=== PATIENT | female | born 1930 | race Caucasian/White ===

== ENCOUNTER 2019-05-19 15:33 | Observation (INO) | payer MEDICARE ==
[~2019-05-19] VITALS: Ht 154.9 cm; Wt 67.3 kg
[2019-05-19 16:17] LABS: BASO % 0.2 % (0.0-1.0); EOS # 0.3 10^3/uL (0.0-0.5); EOS % 3.6 % (0.0-3.0); HEMOGLOBIN 10.5 g/dl (12.0-15.5); LYMPH # 1.7 10^3/uL (1.5-5.0); LYMPH % 19.2 % (24.0-44.0); MEAN CORPUSCULAR HEMOGLOBIN 31.8 pg (27.0-33.0); MEAN CORPUSCULAR HGB CONC 33.9 g/dl (32.0-36.5); MEAN CORPUSCULAR VOLUME 93.9 fl (80.0-96.0); MONO # 0.7 10^3/uL (0.0-0.8); NEUTROPHILS # 5.9 10^3/uL (1.5-8.5); NEUTROPHILS % 68.5 % (36.0-66.0); PLATELET COUNT, AUTOMATED 218 10^3/uL (150-450); WHITE BLOOD COUNT 8.7 10^3/uL (4.0-10.0)
[2019-05-19] MEDS ORDERED: NS 1,000 ML IV SCH ×3 (16:37→21:45)
[2019-05-19 16:38] LABS: ALBUMIN 3.5 GM/DL (3.2-5.2); ALT/SGPT 17 U/L (12-78); BILIRUBIN,DIRECT < 0.1 MG/DL (0.0-0.2); BILIRUBIN,TOTAL 0.3 MG/DL (0.2-1.0); BLOOD UREA NITROGEN 41 MG/DL (7-18); CARBON DIOXIDE LEVEL 22 MEQ/L (21-32); CHLORIDE LEVEL 108 MEQ/L (98-107); GLOMERULAR FILTRATION RATE 20.3 (>32); GLUCOSE, FASTING 282 MG/DL (70-100); LIPASE 17 U/L (73-393); POTASSIUM SERUM 4.9 MEQ/L (3.5-5.1); SODIUM LEVEL 138 MEQ/L (136-145); TOTAL PROTEIN 6.7 GM/DL (6.4-8.2)
[2019-05-19] MEDS ORDERED: MORPHINE 4 MG/ML 1ML VIAL/SYRINGE (J2270) IV ONE (16:45)
[2019-05-19] MEDS ORDERED: GASTROGRAFIN SOLUTION 30ML (Q9963) As Ordered ONE (16:53)
[2019-05-19] MEDS: GASTROGRAFIN SOLUTION 30ML PO SCH ×2 (17:07→17:33)
[2019-05-19] MEDS ORDERED: ONDANSETRON 4MG/2ML VIAL (J2405) As Ordered ONE (17:53)
[2019-05-19] MEDS ORDERED: ONDANSETRON 4MG/2ML VIAL (J2405) IV ONE (18:00)
--- NOTE | 2019-05-19 19:07 | REPVR ---
EXAM: CT Abdomen and Pelvis Without Contrast EXAM DATE/TIME: 05/19/2019 6:42 PM CLINICAL HISTORY: 88 years old, female; Abdominal pain; Additional info: Llq pain TECHNIQUE: Imaging protocol: Computed tomography of the abdomen and pelvis without contrast. Radiation optimization: All CT scans at this facility use at least one of these dose optimization techniques: automated exposure control; mA and/or kV adjustment per patient size (includes targeted exams where dose is matched to clinical indication); or iterative reconstruction. COMPARISON: No relevant prior studies available. FINDINGS: Lungs: Dependent changes within the lung bases is likely secondary to atelectasis. Calcified granuloma within the right middle lobe. Liver: Unremarkable. No mass. Gallbladder and bile ducts: There is a small calcified stone within the gallbladder. No gallbladder wall thickening or pericholecystic inflammation is identified. Pancreas: Coarse calcifications throughout the atrophied pancreas are consistent with chronic pancreatitis. Spleen: Unremarkable. No splenomegaly. Adrenals: Unremarkable. No mass. Kidneys and ureters: There is a 12 mm cyst within the left kidney. There is a stone measuring 6 mm and 2 mm at the left ureteropelvic junction, resulting in moderate left hydronephrosis. The right kidney and right ureter have normal appearances. Stomach and bowel: Mild colonic diverticulosis without diverticulitis. The small bowel is unremarkable. There is a tiny gastric hiatus hernia. Appendix: No evidence of appendicitis. Intraperitoneal space: No free air. No significant fluid collection. Vasculature: There is moderate severe atherosclerosis of the abdominal aorta. No aneurysm. Lymph nodes: No enlarged lymph nodes. Bladder: Unremarkable as visualized. Reproductive: Unremarkable as visualized. Bones/joints: Degenerative spondylosis of the lumbar spine. No fracture. Degenerative changes within both hips. Soft tissues: Unremarkable. IMPRESSION: 1. 6 mm and 2 mm diameter stones at the left ureteropelvic junction, resulting in moderate left hydronephrosis. 2. Left renal cyst. 3. Chronic pancreatitis. 4. Cholelithiasis. COMMENT: Consistent with the [employer]'s Incidental Findings Committee Report (J Am Lisy Radiol 2010): Unless the patient's specific circumstances suggest otherwise, any liver lesion 0.5 cm or less, any cystic kidney lesion less than 1.0 cm, and/or any adrenal lesion 1.0 cm or less not otherwise characterized in this report as possessing suspicious or indeterminate imaging features is/are highly likely to be benign and do not require follow-up imaging or biopsy. Electronically signed by: Marlon Pierce On 05/19/2019 19:07:10 PM
[2019-05-19] MEDS ORDERED: propofoL 200 MG/20 ML VIAL As Ordered ONE (19:49)
[2019-05-19] MEDS ORDERED: LIDOCAINE 2% INJ 100 MG/5 ML SDV (FOR ANES.) As Ordered ONE (19:49)
--- NOTE | 2019-05-19 19:54 | HPEPDOC ---
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 Per discussion with Dr. Schaefer (ED Attending) the CT scan showed 2 stones and moderate hydronephrosis. The patient underwent cystoscopy and left ureteral stent placement tonight; the stones were not removed. She was examined in the recovery area after procedure and reported that her pain had completely resolved. She denied having fevers, denied having chills, denied having nausea, denied having vomiting, denied having dysuria prior to the procedure. REVIEW OF SYSTEMS: 12 point review of systems negative except as listed in HPI PAST MEDICAL/ SURGICAL HISTORY: Chronic CAD status post stent. Chronic Hypertension. CKD 4, Dyslipidemia. Diabetes / Chronic pancreatitis Hypothyroidism Pacemaker placement Chronic anemia Impaired hearing Diverticulosis/history of diverticulitis. Status post Carpal tunnel surgery. Status post hysterectomy Status post left rotator cuff repair SOCIAL HISTORY: Former smoker The patient reports being independent in her ADLs and IADLs FAMILY HISTORY: The patient reports that she does not know her family history because she was adopted ALLERGIES: Please see below. HOME MEDICATIONS: Please see below. PHYSICAL EXAMINATION: VITAL SIGNS: Please see below. GENERAL APPEARANCE: Well-nourished, well-developed, does not appear toxic or septic, not in apparent distress HEENT: Normocephalic, atraumatic, mucous members moist and pink CARDIOVASCULAR: Regular rate and rhythm, no murmurs, rubs or gallops, pacemaker at left upper chest LUNGS: clear to auscultation bilaterally on room air ABDOMEN: Soft and nontender on palpation. Bowel sounds hypoactive MUSCULOSKELETAL: No left-sided CVA tenderness INTEGUMENT: The patient's skin is not flushed NEUROLOGICAL: Cranial nerves II-12 are grossly intact, except for difficulties with hearing, speech is not dysarthric PSYCHIATRIC: Alert and oriented to person, place and time, able to understand and follow commands LABORATORY DATA: See below. IMAGING: CT of abdomen showed 6 mm 2 mm diameter stenosis at the left uteropelvic junction causing moderate left hydronephrosis. A left-sided renal cyst, chronic pancreatitis and cholelithiasis. MICROBIOLOGY: Please see below. ASSESSMENT: Ms. Daniels is an 88-year-old female with a past medical history of chronic CAD, chronic hypertension, CKD 4, dyslipidemia, diabetes, chronic pancreatitis, hypothyroidism, pacemaker placement, and chronic anemia who will be admitted for management of ureterolithiasis with hydronephrosis. PLAN: 1. Ureterolithiasis with hydronephrosis. The diagnosis was made based on CT findings Plan: Admit to F after procedure/continue with IV fluids/follow-up with urology / acetaminophen for pain, 1-5 in severity + tramadol for pain 6-10 in severity 2. ROSAMARAI on CKD 4 versus CKD 4 ROSAMARIA, may be due to obstruction from kidney stones. CKD, possibly due to diabetic nephropathy versus hypertensive nephropathy or hypertensive nephrosclerosis Her current Cr 2.4 . We do not have additional records to review her previous creatinine, GFR and BUN. Plan: Is/ Os & daily weights / Renal diet tomorrow / IVF/ f/u UA ulytes for FENa or FEUrea/ f/u renal US, Phosphorous, 25 Vitamin D, Hepatitis Panel, PTH, C3, C4, Iron Panel w Ferritin, UPro:Cr ratio, protein immunoelectrophoresis /if her renal function doesn't improve, the daytime team may consider Service Greeter consult/ avoid NSAIDs / hold Lisinopril 3. Chronic normocytic normochromic anemia. Likely due to anemia of chronic disease Plan: Follow-up reticulocyte count and iron studies 4. Chronic Hypertension. Plan: Continue home meds except for lisinopril 5.Dyslipidemia /chronic CAD. Plan: Continue home meds 6. Diabetes Not sure if this is related to her history of chronic pancreatitis Plan: diabetic diet / f/u accuchecks & A1C / hypoglycemia protocol / continue with glargine 8 units at night along with sliding scale insulin / hold glipizide 7. Hypothyroidism Plan: Continue home meds DVT prophylaxis with SCDs. Disposition pending clinical course Vital Signs Vital Signs Date Time Temp Pulse Resp B/P (MAP) Pulse Ox O2 Delivery O2 Flow Rate FiO2 05/19/19 18:45 74 16 05/19/19 18:30 153/70 (97) 94 05/19/19 15:42 98.3 Laboratory Data Labs 24H Laboratory Tests 2 05/19/19 16:02: Immature Granulocyte % (Auto) 0.5, White Blood Count 8.7, Red Blood Count 3.30L, Hemoglobin 10.5L, Hematocrit 31.0L, Mean Corpuscular Volume 93.9, Mean Corpuscular Hemoglobin 31.8, Mean Corpuscular Hemoglobin Concent 33.9, Red Cell Distribution Width 11.9, Platelet Count 218, Neutrophils (%) (Auto) 68.5H, Lymphocytes (%) (Auto) 19.2L, Monocytes (%) (Auto) 8.0H, Eosinophils (%) (Auto) 3.6H, Basophils (%) (Auto) 0.2, Neutrophils # (Auto) 5.9, Lymphocytes # (Auto) 1.7, Monocytes # (Auto) 0.7, Eosinophils # (Auto) 0.3, Basophils # (Auto) 0.0, Nucleated Red Blood Cells % (auto) 0.0, Anion Gap 8, Glomerular Filtration Rate 20.3L, Calcium Level 9.0, Aspartate Amino Transf (AST/SGOT) 11, Alanine Aminotransferase (ALT/SGPT) 17, Alkaline Phosphatase 109, Total Bilirubin 0.3, Direct Bilirubin < 0.1, Total Protein 6.7, Albumin 3.5, Albumin/Globulin Ratio 1.09, Lipase 17L CBC/BMP Laboratory Tests 05/19/19 16:02 Red Blood Count 3.30 L, Mean Corpuscular Volume 93.9, Mean Corpuscular Hemoglobin 31.8, Mean Corpuscular Hemoglobin Concent 33.9, Red Cell Distribution Width 11.9, Neutrophils (%) (Auto) 68.5 H, Lymphocytes (%) (Auto) 19.2 L, Monocytes (%) (Auto) 8.0 H, Eosinophils (%) (Auto) 3.6 H, Basophils (%) (Auto) 0.2, Neutrophils # (Auto) 5.9, Lymphocytes # (Auto) 1.7, Monocytes # (Auto) 0.7, Eosinophils # (Auto) 0.3, Basophils # (Auto) 0.0 Home Medications Scheduled Ergocalciferol (Vitamin D2) (Vitamin D2) 50,000 Unit Capsule, 50,000 UNIT PO 1XW K TAKES ON FRIDAY Furosemide (Furosemide) 20 Mg Tablet, 20 MG PO DAILY Glipizide (Glipizide ER) 2.5 Mg Tab.er.24, 2.5 MG PO DAILY Hydralazine HCl (Hydralazine HCl) 10 Mg Tablet, 10 MG PO BID Insulin Glargine,Hum.rec.anlog (Lantus Solostar) 100 Unit/1 Ml Insuln.pen, 8 UNITS SC QPM TAKES AT NOON Levothyroxine Sodium (Synthroid) 100 Mcg Tablet, 100 MCG PO DAILY Lisinopril (Lisinopril) 40 Mg Tablet, 40 MG PO DAILY Magnesium Oxide (Magnesium Oxide) 400 Mg Tablet, 400 MG PO DAILY Metoprolol Succinate (Metoprolol Succinate) 50 Mg Tab.er.24h, 50 MG PO BID Pravastatin Sodium (Pravastatin Sodium) 10 Mg Tablet, 10 MG PO DAILY Scheduled PRN Clotrimazole (Clotrimazole) 1% 30GM Cream..g., 1 APLCT TOP TID PRN for RASH APPLY TO AFFECTED AREA OF GENITAL REGION Allergies Coded Allergies: amlodipine (Verified Allergy, Severe, angioedema, 05/19/19) A-FIB/CHADSVASC A-FIB History Current/History of A-Fib/PAF?: No Current PO Anticoag Therapy: No CINTHIA SETHI MD May 19, 2019 19:54
[2019-05-19] MEDS ORDERED: CONRAY-60 60% 50ML VIAL (Q9961) As Ordered ONE (20:04)
[2019-05-19] MEDS ORDERED: FURO20TA2 PO (20:20)
[2019-05-19] MEDS ORDERED: LISI40TA PO (20:20)
[2019-05-19] MEDS ORDERED: LANTINJ4 SC (20:20)
[2019-05-19] MEDS ORDERED: HYDR10TAB PO (20:20)
[2019-05-19] MEDS ORDERED: SYNT100T PO (20:20)
[2019-05-19] MEDS ORDERED: VITA50005 PO (20:20)
[2019-05-19] MEDS ORDERED: GLIP2.5T6 PO (20:20)
[2019-05-19] MEDS ORDERED: CLOT1CRE27 TOP (20:20)
[2019-05-19] MEDS ORDERED: PRAV10TA3 PO (20:20)
[2019-05-19] MEDS ORDERED: MAGN400T2 PO (20:20)
[2019-05-19] MEDS ORDERED: METO1TAB7 PO (20:20)
[2019-05-19 20:38] LABS: PHOSPHORUS LEVEL 3.3 MG/DL (2.5-4.9)
--- NOTE | 2019-05-19 20:54 | SMCUROLCON ---
Urology Consultation General Date of Consultation 05/19/19 Reason For Consultation This patient is seen for Abd Pain. History of Present Illness This is an 88 y/o F w/ a PMH significant for CAD (s/p stent placement), HL, chronic pancreatitis, DM2, hypothyroidism, and CKD, presenting to the ER today after having an acute onset of left flank pain while being seen by nephrology today. This was associated w/ nasuea and vomiting. On CT she has a 6.5mm and a 2mm stone adjacent to each other and obstructing at the left UPJ. There is moderate hydronephrosis w/ mild perinephric stranding. Her Cr is elevated to 2.4 from a baseline of 1.9. Her WBC is normal. She notes that she was treated for left kidney stones several years ago w/ an ESWL. She has never passed any stones. Past Medical History Medical History see HPI Surgical Hstory carpal tunnel surgery x2, left rotator cuff repair, pacemaker, cardiac stent, hysterectomy Medications Current Medications Current Medications Medications (Trade) Dose Ordered Sig/Jewell Route PRN Reason Start Time Stop Time Status Last Admin Dose Admin Diatrizoate Meglum/ Diatrizoate Sod (Gastrografin) 10 ml Q30M PO 05/19/19 17:15 05/19/19 17:46 DC 05/19/19 17:33 Sodium Chloride 1,000 ml @ 150 mls/hr Q6H40M IV 05/19/19 16:37 05/19/19 16:59 Allergies Allergies: Coded Allergies: amlodipine (Verified Allergy, Severe, angioedema, 05/19/19) Review of Systems Constitutional: Denies: Fever, Chills, Sweats, Weakness, Malaise Eyes: Denies: Pain, Vision change ENT: Denies: Head Aches, Sore Throat, Epistaxis Cardiovascular: Denies Chest Pain, Denies Palpitations Gastrointestinal: Reports: Nausea, Vomiting Genitourinary: Denies: Dysuria Musculoskeletal: Reports: Back Pain (left flank pain) Neurological: Denies: Weakness, Numbness, Incoordination, Change in Speech Psych: Reports: Mood Normal; Denies: Anxiety, Depression Physical Examination General Exam: Alert Chest Exam: Normal air movement Heart Exam: Rate Normal Abdomen Exam: Soft Skin Exam: Nl turgor and temperature Neuro Exam: Normal Speech Psych Exam: Mental status NL, Mood NL Vital Signs/I&O Vital Signs Date Time Temp Pulse Resp B/P (MAP) Pulse Ox O2 Delivery O2 Flow Rate FiO2 05/19/19 18:45 74 16 05/19/19 18:30 153/70 (97) 94 05/19/19 15:42 98.3 Laboratory Data 24H Labs Laboratory Tests 2 05/19/19 16:02: Immature Granulocyte % (Auto) 0.5, White Blood Count 8.7, Red Blood Count 3.30L, Hemoglobin 10.5L, Hematocrit 31.0L, Mean Corpuscular Volume 93.9, Mean Corpuscular Hemoglobin 31.8, Mean Corpuscular Hemoglobin Concent 33.9, Red Cell Distribution Width 11.9, Platelet Count 218, Neutrophils (%) (Auto) 68.5H, Lymphocytes (%) (Auto) 19.2L, Monocytes (%) (Auto) 8.0H, Eosinophils (%) (Auto) 3.6H, Basophils (%) (Auto) 0.2, Neutrophils # (Auto) 5.9, Lymphocytes # (Auto) 1.7, Monocytes # (Auto) 0.7, Eosinophils # (Auto) 0.3, Basophils # (Auto) 0.0, Nucleated Red Blood Cells % (auto) 0.0, Anion Gap 8, Glomerular Filtration Rate 20.3L, Calcium Level 9.0, Aspartate Amino Transf (AST/SGOT) 11, Alanine Aminotransferase (ALT/SGPT) 17, Alkaline Phosphatase 109, Total Bilirubin 0.3, Direct Bilirubin < 0.1, Total Protein 6.7, Albumin 3.5, Albumin/Globulin Ratio 1.09, Lipase 17L CBC/BMP Laboratory Tests 05/19/19 16:02 Red Blood Count 3.30 L, Mean Corpuscular Volume 93.9, Mean Corpuscular He moglobin 31.8, Mean Corpuscular Hemoglobin Concent 33.9, Red Cell Distribution Width 11.9, Neutrophils (%) (Auto) 68.5 H, Lymphocytes (%) (Auto) 19.2 L, Monocytes (%) (Auto) 8.0 H, Eosinophils (%) (Auto) 3.6 H, Basophils (%) (Auto) 0.2, Neutrophils # (Auto) 5.9, Lymphocytes # (Auto) 1.7, Monocytes # (Auto) 0.7, Eosinophils # (Auto) 0.3, Basophils # (Auto) 0.0 Assessment This is an 88 y/o F w/ ROSAMARIA due to an obstructing stones at the left UPJ. I recommended that we take her to the OR tonight for cystoscopy and left ureteral stent placement. After a discussion of the risks and benefits of the procedure, informed consent was signed. Plan - informed consent signed for cystoscopy, left ureteral stent placement - NPO - 2g ancef operations clerk to OR - will be admitted to hospitalist service postop YULISSA MCGRATH MD May 19, 2019 19:38
[2019-05-19] MEDS ORDERED: ceFAZolin 2 GM/D5W 50 ML IV BAG (J0690 PER 500MG) As Ordered ONE (20:58)
[2019-05-19] MEDS ORDERED: LIDOCAINE 2% 5ML JELLY UROJET As Ordered ONE (20:58)
[2019-05-19] MEDS ORDERED: ceFAZolin SOD 2 GM in IV 1 EA IV ONE (21:00)
[2019-05-19] MEDS ORDERED: LR 1,000 ML IV SCH (21:15)
[2019-05-19] MEDS ORDERED: ONDANSETRON 4MG/2ML VIAL (J2405) IV PRN (21:15)
[2019-05-19] MEDS ORDERED: fentaNYL 100 MCG/2 ML INJECTION (J3010) IV PRN (21:15)
[2019-05-19 22:28] VITALS: BP 144/75
[2019-05-19] MEDS ORDERED: traMADol 50 MG TAB PO PRN (22:45)
[2019-05-19] MEDS ORDERED: ACETAMINOPHEN 650MG ER TAB (TYLENOL ARTHRITIS) PO PRN (22:45)
[2019-05-19] MEDS: NS 1,000 ML IV SCH (22:48)
[2019-05-19 22:58] VITALS: BP 140/71
[2019-05-19] MEDS: METOPROLOL SUCC (TopROL XL) 50MG **XL** TAB PO SCH (23:11)
[2019-05-19] MEDS: LEVEMIR (INSULIN DETEMIR) 1 UNITS/0.01ML SC SCH (23:11)
[2019-05-19] MEDS: **hydrALAZINE** 10 MG TAB PO SCH (23:12)
[2019-05-19] MEDS ORDERED: DEXTROSE 50% 50 ML SYRINGE IV PRN (23:15)
[2019-05-19] MEDS: HumaLOG INSULIN (NovoLOG) PER UNIT SC SCH (23:23)
[2019-05-19 23:38] VITALS: BP 135/68
[2019-05-20 00:52] VITALS: BP 119/54
[2019-05-20 02:02] VITALS: BP 107/66
[2019-05-20] MEDS: LEVOTHYROXINE 100MCG TABLET (0.1MG) PO SCH (05:44)
[2019-05-20] MEDS: NS 1,000 ML IV SCH (05:44)
[2019-05-20 05:45] VITALS: BP 111/59
[2019-05-20 06:57] LABS: HEMATOCRIT 27.6 % (36.0-47.0); HEMOGLOBIN 9.2 g/dl (12.0-15.5); MEAN CORPUSCULAR HEMOGLOBIN 30.6 pg (27.0-33.0); MEAN CORPUSCULAR HGB CONC 33.3 g/dl (32.0-36.5); MEAN CORPUSCULAR VOLUME 91.7 fl (80.0-96.0); PLATELET COUNT, AUTOMATED 214 10^3/uL (150-450); RED BLOOD COUNT 3.01 10^6/uL (4.00-5.40); WHITE BLOOD COUNT 8.3 10^3/uL (4.0-10.0)
[2019-05-20 07:25] LABS: BLOOD UREA NITROGEN 41 MG/DL (7-18); CALCIUM LEVEL 8.3 MG/DL (8.8-10.2); CARBON DIOXIDE LEVEL 20 MEQ/L (21-32); CHLORIDE LEVEL 110 MEQ/L (98-107); CREATININE FOR GFR 2.23 MG/DL (0.55-1.30); FERRITIN 28 NG/ML (8-252); GLOMERULAR FILTRATION RATE 22.1 (>32); GLUCOSE, FASTING 166 MG/DL (70-100); IRON (FE) 31 UG/DL (50-170); PERCENT SATURATION 12.6 % (13.2-45.0); POTASSIUM SERUM 5.2 MEQ/L (3.5-5.1); SODIUM LEVEL 140 MEQ/L (136-145); TOTAL IRON BINDING CAPACITY 247 UG/DL (250-450); TOTAL PROTEIN 5.7 GM/DL (6.4-8.2)
--- NOTE | 2019-05-20 07:47 | IPNPDOC ---
Subjective Review oF Systems Chief Complaint The patient is a 88-year-old female admitted with a reason for visit of Ureterolithiasis,Agustin. Events since Last Encounter No acute events o/n. Patient notes her left flank pain is gone. She denies nausea. No f/c/ns. Objective Physical Examination General Exam: Alert, Cooperative, No Acute Distress ABDOMEN EXAM: BS Hyperactive, Soft; No: Tenderness Skin Exam: Nl turgor and temperature Neuro Exam: Normal Speech Psych Exam: Mental status NL, Mood NL Other physical findings no CVAT Vital Signs/I&O Vital Signs Date Time Temp Pulse Resp B/P (MAP) Pulse Ox O2 Delivery O2 Flow Rate FiO2 05/20/19 05:45 97.2 72 20 111/59 (76) 95 05/19/19 22:05 2 I&O- Last 24 Hours up to 6 AM 05/20/19 06:00 Intake Total 250 ml Output Total 485 ml Balance -235 ml Laboratory Data Labs 24H Laboratory Tests 2 05/19/19 16:02: Immature Granulocyte % (Auto) 0.5, White Blood Count 8.7, Red Blood Count 3.30L, Hemoglobin 10.5L, Hematocrit 31.0L, Mean Corpuscular Volume 93.9, Mean Corpuscular Hemoglobin 31.8, Mean Corpuscular Hemoglobin Concent 33.9, Red Cell Distribution Width 11.9, Platelet Count 218, Neutrophils (%) (Auto) 68.5H, Lymphocytes (%) (Auto) 19.2L, Monocytes (%) (Auto) 8.0H, Eosinophils (%) (Auto) 3.6H, Basophils (%) (Auto) 0.2, Neutrophils # (Auto) 5.9, Lymphocytes # (Auto) 1.7, Monocytes # (Auto) 0.7, Eosinophils # (Auto) 0.3, Basophils # (Auto) 0.0, Nucleated Red Blood Cells % (auto) 0.0, Anion Gap 8, Glomerular Filtration Rate 20.3L, Calcium Level 9.0, Phosphorus Level 3.3, Aspartate Amino Transf (AST/SGOT) 11, Alanine Aminotransferase (ALT/SGPT) 17, Alkaline Phosphatase 109, Total Bilirubin 0.3, Direct Bilirubin < 0.1, Total Protein 6.7, Albumin 3.5, Albumin/Globulin Ratio 1.09, Lipase 17L 05/19/19 21:34: Bedside Glucose (Misc Panel) 241H 05/19/19 22:58: Bedside Glucose (Misc Panel) 243H 05/20/19 06:26: Nucleated Red Blood Cells % (auto) 0.0, Anion Gap 10, Glomerular Filtration Rate 22.1L, Calcium Level 8.3L, Reticulocyte # (auto) 34.6, Percent Reticulocyte Count 1.2, Reticulocyte Hemoglobin Equivalent 35.9, Blood Urea Nitrogen 41H, Creatinine 2.23H, Sodium Level 140, Potassium Level 5.2H, Chloride Level 110H, Carbon Dioxide Level 20L, Iron Level 31L, Total Iron Binding Capacity 247L, Transferrin % Saturation 12.6L, Ferritin 28, Total Protein (PEP) 5.7L CBC/BMP Laboratory Tests 05/19/19 16:02 Red Blood Count 3.30 L, Mean Corpuscular Volume 93.9, Mean Corpuscular Hemoglo bin 31.8, Mean Corpuscular Hemoglobin Concent 33.9, Red Cell Distribution Width 11.9, Neutrophils (%) (Auto) 68.5 H, Lymphocytes (%) (Auto) 19.2 L, Monocytes (%) (Auto) 8.0 H, Eosinophils (%) (Auto) 3.6 H, Basophils (%) (Auto) 0.2, Neutrophils # (Auto) 5.9, Lymphocytes # (Auto) 1.7, Monocytes # (Auto) 0.7, Eosinophils # (Auto) 0.3, Basophils # (Auto) 0.0 05/20/19 06:26 Red Blood Count 3.01 L, Mean Corpuscular Volume 91.7, Mean Corpuscular Hemoglobin 30.6, Mean Corpuscular Hemoglobin Concent 33.3, Red Cell Distribution Width 12.0, Calcium Level 8.3 L FSBS Laboratory Tests Test 05/19/19 21:34 05/19/19 22:58 Range/Units Bedside Glucose (Misc Panel) 241 243 83-110 MG/DL Assessment/Plan Date Seen The patient was seen on 05/20/19. Patient Summary This is an 88 y/o F admitted for AGUSTIN due to obstructing left UPJ stones, POD1 s/p cysto w/ left ureteral stent placement. She is doing well. Her Cr is trending down. Plan/VTE VTE Prophylaxis Ordered?: Yes VTE Exclusion Mechanical Proph: N/A:VTE Prophy Ordered Plan - no additional intervention required on this admission - patient will ultimately need a left ureteroscopy w/ laser lithotripsy to remove her stones (she prefers not to have an ESWL due to injury to her kidney about 10 years ago from an ESWL) - my office will contact the patient to arrange f/u in my office to get her set up for surgery YULISSA MCGRATH MD May 20, 2019 07:47
--- NOTE | 2019-05-20 08:11 | REP ---
RETROGRADE PYELOGRAM: Two views. HISTORY: Stent placement. 20 seconds of fluoroscopy time is reported. FINDINGS: A sequence of two last image hold fluoroscopically obtained spot radiographs document left ureteral contrast and left ureteral double pigtail stent placement. Electronically Signed by Sushil Kang MD 05/20/2019 09:53 A
[2019-05-20 08:20] LABS: FOLATE > 24.0 NG/ML (>5.4); PTH INTACT 245.2 PG/ML (18.5-88.0); TOTAL 25(OH) VITAMIN D 30.7 NG/ML (30.0-100.0); VITAMIN B12 LEVEL 209 PG/ML (247-911)
[2019-05-20] MEDS ORDERED: FUROSEMIDE 20 MG TAB PO SCH (09:00)
--- NOTE | 2019-05-20 09:11 | REP ---
Clinical: Stage IV chronic medical renal disease. Technique: Real time hernández scale ultrasound examination using curved array transducer. Findings: Right kidney is normal in reniform shape and echogenicity with increased central sinus fat and measures 9.7 x 4.5 x 4.1 cm. No hydronephrosis, nephrolithiasis, cystic or renal mass lesion. Left kidney demonstrates increased parenchymal echo texture and multiple cysts which appear relatively simple and measure up to 1.9 x 1.8 x 2.7 cm at the lower pole. Left kidney measures 8.5 x 3.9 x 3.4 cm without obvious nephrolithiasis or renal mass lesion. Residual hydronephrosis cannot be excluded. Limited evaluation of the collapsed bladder demonstrates the recently placed left ureteral stent. Impression: 1. Findings consistent with chronic medical renal disease. 2. Right kidney without hydronephrosis. 3. Left kidney demonstrates multiple cysts and hydronephrosis cannot definitively be excluded. Electronically Signed by Fran García MD 05/20/2019 09:03 A
[2019-05-20] MEDS: HumaLOG INSULIN (NovoLOG) PER UNIT SC SCH ×4 (09:23→20:36)
[2019-05-20] MEDS: **hydrALAZINE** 10 MG TAB PO SCH ×2 (09:24→20:37)
[2019-05-20] MEDS: METOPROLOL SUCC (TopROL XL) 50MG **XL** TAB PO SCH ×2 (09:24→20:38)
[2019-05-20] MEDS: MAGNESIUM OXIDE 400 MG TAB (MAG-OX) PO SCH (09:24)
--- NOTE | 2019-05-20 09:38 | RO ---
DATE OF PROCEDURE: 05/19/2019 PREPROCEDURE DIAGNOSIS: Obstructing left ureteral stone. POSTPROCEDURE DIAGNOSIS: Obstructing left ureteral stone. PROCEDURE: Cystoscopy, left retrograde pyelogram with intraoperative interpretation of images, left ureteral stent placement. SURGEON: Dr. Gregory Holloway [facility] [employer] [facility] [facility] TEACHER: None. ANESTHESIA: MAC. OPERATIVE INDICATIONS: This is an 88-year-old female who presented to the emergency room with acute onset left flank pain. On CAT scan, she was found to have obstructing stones at the left ureteropelvic junction measuring up to 6.5 mm in size. She also had a bump in her serum creatinine to 2.4. It was recommended to bring her to the operating room today for the above listed procedure. DESCRIPTION OF PROCEDURE: The patient was brought to the operating room and MAC anesthesia was administered. Prophylactic antibiotics were infused. She was placed in dorsal lithotomy position and prepped and draped in the usual sterile fashion. A rigid cystoscope was inserted into the urethral meatus and advanced into the bladder. Once inside the bladder, a guidewire was advanced up the left collecting system. I advanced a 5 [place] open ended ureteral catheter over the wire into the left collecting system. The wire was then removed and a retrograde pyelogram was performed and was notable for moderate left hydronephrosis with no extravasation. I then advanced the wire back up the left collecting system and removed the ureteral catheter. I then advanced a 7 [place]ian x 22-32 cm JJ ureteral stent over the wire into the left collecting system. The wire was then removed and there were adequate curls of the stent in the left renal pelvis and in the bladder. The bladder was then emptied of all fluid and this marked the conclusion of the procedure. The patient was then taken out of the dorsal lithotomy position, awakened from anesthesia and transported to the recovery room in stable condition. Estimated blood loss: 0 mL. Complications: None. Specimen: None. Plan: The patient will be monitored on the hospitalist service to see if her serum creatinine improves. We will have to bring her back to the operating room at a later date once we confirm that she does not have a urinary tract and we will treat her stone at that time with ureteroscopy with laser lithotripsy. BENNIE
[2019-05-20 10:00] VITALS: BP 113/58
[2019-05-20] MEDS: PRAVASTATIN 10 MG TAB PO SCH (11:42)
[2019-05-20] MEDS: IRON SUCROSE 200 MG in NS 100 ML IV SCH (11:43)
[2019-05-20] MEDS ORDERED: CYANOCOBALAMIN 1,000 MCG/ML VIAL (J3420) IM ONE (12:30)
[2019-05-20 13:23] LABS: ALBUMIN 3.44 GM/DL (3.29-5.55); ALBUMIN % 60.4 % (55.8-66.1); ALPHA-1-GLOBULIN % 5.3 % (2.9-4.9); ALPHA-2-GLOBULINS 0.74 GM/DL (0.42-0.99); ALPHA-2-GLOBULINS % 12.9 % (7.1-11.8); BETA-1-GLOBULINS 0.31 GM/DL (0.28-0.60); BETA-1-GLOBULINS % 5.4 % (4.7-7.2); BETA-2-GLOBULINS 0.25 GM/DL (0.19-0.55); BETA-2-GLOBULINS % 4.4 % (3.2-6.5); GAMMA GLOBULIN % 11.6 % (11.1-18.8); GAMMA GLOBULINS 0.66 GM/DL (0.65-1.58)
[2019-05-20 14:00] VITALS: BP 119/57
[2019-05-20 14:28] LABS: CALCIUM LEVEL 8.2 MG/DL (8.8-10.2); CREATININE FOR GFR 2.36 MG/DL (0.55-1.30); GLOMERULAR FILTRATION RATE 20.7 (>32); POTASSIUM SERUM 4.9 MEQ/L (3.5-5.1)
--- NOTE | 2019-05-20 14:32 | CR ---
DATE OF CONSULTATION: 05/20/2019 REQUESTING PHYSICIAN: Dr. Kathrine Goetz. REASON FOR CONSULTATION: Management of acute kidney injury superimposed on chronic kidney disease stage IV. HISTORY OF PRESENT ILLNESS: Leslie Daniels is an 88-year-old female with past medical history of chronic kidney disease stage IV, hypertension, diabetes mellitus type 2, hypothyroidism. She presented to the nephrology clinic for the first time ever for initial evaluation of chronic disease stage IV. However, during evaluation the patient was found to have 9/10 pain in the left sided abdomen. It started the same day and she said that the pain started after she ate lunch. It was associated with nausea, vomiting. There was no fever and chills. The patient was found to have acute kidney injury as well with a creatinine of 2.4. She was sent to the emergency room for further evaluation. CT scan of the abdomen and pelvis without contrast showed that the patient had two stones in the left ureteropelvic junction with left-sided hydronephrosis. The patient was admitted under the hospitalist service. She got emergent retrograde pyelogram done and stent placement in the left-sided ureter, which helped in the improvement of the left-sided abdominal pain. Nephrology service was called today for further help in the management of this patient with acute kidney injury superimposed on chronic kidney disease stage IV, baseline creatinine of around 1.9. I saw and evaluated the patient this morning at the bedside. The patient reports that she feels significantly better today as compared with yesterday. After the stent placement, all of her pain is gone. He was getting IV fluid hydration, but she is able to tolerate oral liquids as well. PAST MEDICAL HISTORY: Past medical history of chronic kidney disease stage IV. History of hypertension. Coronary artery disease status post stents. Hyperlipidemia. Diabetes mellitus type 2. Chronic pancreatitis. Hypothyroidism. Status post pacemaker implant. Chronic anemia. PAST SURGICAL HISTORY: Status post carpal tunnel surgery. Status post hysterectomy. Status post a rotator cuff repair The patient just got the retrograde pyelogram and placement of stent in the left side. ALLERGIES: She is allergic to AMLODIPINE. FAMILY HISTORY: No significant family history of end-stage renal disease requiring hemodialysis. The patient was adopted. SOCIAL HISTORY: She is a former smoker. She denies any smoking, illicit drug abuse or alcohol abuse. REVIEW OF SYSTEMS: CONSTITUTIONAL: Patient denies any fevers and chills. EYES: She denies any blurry vision, double vision. ENT: She denies any dysphagia or odynophagia, ear discharge. CARDIOVASCULAR: She denies any chest pain or palpitation. RESPIRATORY: She denies any shortness of breath or cough. GASTROINTESTINAL (GI): She denies any nausea, vomiting. She did have abdominal pain yesterday but this is improved now. GENITOURINARY: She denies any dysuria or hematuria. MUSCULOSKELETAL: She denies any muscle aches and pains. SKIN: She denies any rashes or ulcers. ENDOCRINE: She reports history of diabetes mellitus type 2 site. PSYCH: She denies any depression or anxiety. HEMATOLOGY/ONCOLOGY: Culture denies any easy bleeding or bruising. All other review of systems is negative. PHYSICAL EXAMINATION: GENERAL: The patient is awake, alert, oriented times three, laying in bed in no apparent distress. VITAL SIGNS: Temperature is 98 degrees Fahrenheit, blood pressure 113/58, pulse is 70, respiratory of 18, saturating 95% on room air. HEAD AND NECK EXAM: Extraocular muscles intact. Pupils equally round and reactive to light. Mucous membranes are moist. NECK: Neck is supple. There is no jugular venous distention (JVD). CARDIOVASCULAR: S1, S2, regular rate. No edema of the bilateral lower extremities. RESPIRATORY: Chest is clear to auscultation bilaterally. Bilateral equal air entry. No rales or rhonchi. ABDOMEN: Soft. Positive bowel sounds. Nontender. No organomegaly. MUSCULOSKELETAL: No clubbing or cyanosis. Pulses are 2+. CENTRAL NERVOUS SYSTEM (RODEO RIDER): No focal deficit power is 5/5 in all extremities. SKIN: No rashes or ulcers. PSYCH: Normal mood and affect. LAB REVIEW: CBC showed a WBC of 8.3, hemoglobin 9.2, platelets of 114. BMP yesterday showed a sodium of 138, potassium 4.9, chloride 108, bicarb 22, BUN 41, creatinine 2.4. BMP done this morning shows sodium 140, potassium 5.2, chloride 110, bicarb 20, BUN 41, creatinine is 2.2, A1c is 9, calcium is 8.3, iron is 31, TIBC 247, transferrin saturation is 12.6, ferritin is 28. Protein electrophoresis is pending, folate is 24, PTH is 245, vitamin B12 is 209, which is low. IMAGING STUDIES: Patient got a CT scan done yesterday which showed two stones in the left ureter at the ureteropelvic junction. One stone was 6 mm and the other one was 2 mm and there was left-sided hydronephrosis. There was chronic pancreatitis. The patient had a repeat renal ultrasound done this morning which showed chronic medical renal disease. The right kidney without hydronephrosis, left kidney has multiple cysts and he could not rule out a hydronephrosis. CURRENT INPATIENT MEDICATIONS: The patient's medications were all reviewed by me. She was getting IV fluids. I have stopped the IV fluids now since the patient is tolerating oral liquids. I have started the patient on Venofer 200 mg IV daily because of iron deficiency. She is on Tylenol as needed. I have also ordered vitamin B12 injection 1000 mcg IM and oral B12 500 mcg by mouth daily. He is on Lasix 20 mg daily, hydralazine 10 mg by mouth twice a day Levemir 8 units as nightly. thyroxine 100 mcg by mouth daily, magnesium 400 mg by mouth daily, metoprolol 50 mg by mouth twice a day, Zofran one dose, pravastatin 10 mg by mouth daily and tramadol as needed. ASSESSMENT: 88-year-old female with the chronic kidney disease stage IV hypertension, diabetes mellitus type 2, hypothyroidism, admitted this time with acute kidney injury superimposed on chronic kidney disease stage IV and acute left-sided hydronephrosis with stone in the left ureteropelvic junction PLAN: 1. Acute kidney injury superimposed on chronic kidney disease stage IV: It is secondary to combination of obstructive nephropathy from left-sided kidney stones and use of angiotensin converting enzyme inhibitors (KENNEDY) inhibitors at home. Lisinopril last dose was yesterday. KENNEDY inhibitors have already been held. The patient was being given IV fluid hydration. However, she is able to tolerate oral liquids now, IV fluids have been stopped. Baseline creatinine is 1.9, creatinine is already coming down to 2.2 today. Rest of the workup will be done as outpatient. 2. Chronic anemia: It is secondary to combination of iron deficiency and B12 deficiency. I have started the patient on Venofer 100 mg IV daily and I have also started the patient on vitamin B12 500 mcg by mouth daily and IV IM B12 will be given as well. 3. Left-sided ureteropelvic junction stone and left-sided hydronephrosis: The patient got the retrograde pyelogram done by urology. I appreciate their help in the management of this patient. The patient got the stent placement. Rest of the management will be done as outpatient. Pain is optimized now. Rest of workup for stone formation will be done as outpatient. 4. Hypertension: Continue metoprolol and hydralazine. Avoid use of KENNEDY inhibitors and chronic kidney disease stage IV. 5. Diabetes mellitus type 2: The patient is currently on insulin, Levemir and sliding scale. Avoid use of metformin. 6. Hyperkalemia: The patient has mild hyperkalemia. She was using KENNEDY inhibitors at home. She also got Ringer's lactate over here, which has potassium. No urgent need of Kayexalate administration at this time. Continue the low potassium diet. DISPOSITION: The patient is symptomatically getting better. A further BMP done in the afternoon shows improvement and the patient should be okay to be discharged from nephrology standpoint. She already has a 2-week clinic followup in nephrology clinic. Thank you for involving me in the care of this patient. I shall be happy to follow the patient along with you if she is here until tomorrow morning.
[2019-05-20] MEDS: CYANOCOBALAMIN 500 MCG TAB PO SCH (14:52)
--- NOTE | 2019-05-20 15:36 | IPNPDOC ---
Text Note Date of Service The patient was seen on 05/20/19. NOTE Subjective: Patient is an 88-year-old female who presented to the hospital with flank pain from the nephrology office. Patient went to the emergency room and was diagnosed with left urolithiasis with hydronephrosis. Patient went underwent cystoscopy and left ureteral stent placement by urology. She is feeling better today. Urology has cleared for discharge however, a repeat metabolic profile shows that her creatinine has still not improved towards her baseline. Decision was made to keep the patient. Patient is agreeable and understands. Review of systems General: Patient denies fevers HEENT: Patient denies headaches Cardiovascular: Patient denies chest pain Respiratory: Patient denies shortness of breath, cough GI: Patient's abdominal pain is improved from yesterday. : Patient denies pain or difficulty with urination Neurological: Patient denies numbness or tingling in extremities Extremities: Patient denies swelling or pain in extremities Objective: Vitals: (see below) General: No acute distress, laying comfortably in bed. HEENT: Normocephalic, atraumatic, moist mucous membranes. Neck: No JVD or lymphadenopathy Cardiac: RRR, No murmurs Pulm: Clear to auscultation b/l. No wheezing, rhonchi Abd: NT/ND + BS Ext: No edema or cyanosis. Radial, posterior tibial, and dorsalis pedis pulses equal bilaterally. Labs (see below) Images: A renal ultrasound performed on 05/20/2019 shows findings consistent with chronic medical renal disease, right kidney is without hydronephrosis, left kidney demonstrates multiple cysts and hydronephrosis cannot definitely be excl uded. Assessment/Plan 1. Ureterolithiasis with hydronephrosis. Patient has been cleared by urology will see her outpatient for further evaluation and management. 2. Acute kidney injury on chronic kidney disease stage IV. This may be due to obstruction from kidney stones. We are fluid resuscitating the patient with lactated Ringer's at 100 mL per hour. We have stopped the patient's diuretic. 3. Chronic normocytic normochromic anemia. Likely due to chronic disease. We will continue to monitor. 4. Hypertension. Continue home medications except for lisinopril due to its nephrotoxicity. 5. Dyslipidemia. Continue with home medications. 6. Diabetes. Patient will continue with sliding scale insulin and glargine 8 units at night. 7. Hypothyroidism. Continue home medications. DVT prophy: Sequential compression devices Dispo: Pending improvement of renal function. I saw and evaluated the patient. I agree with the findings and plan of care as documented in the above note VS,[place], I+O VS, [place], I+O Laboratory Tests 05/19/19 16:02 Red Blood Count 3.30 L, Mean Corpuscular Volume 93.9, Mean Corpuscular Hemoglobin 31.8, Mean Corpuscular Hemoglobin Concent 33.9, Red Cell Distribution Width 11.9, Neutrophils (%) (Auto) 68.5 H, Lymphocytes (%) (Auto) 19.2 L, Monocytes (%) (Auto) 8.0 H, Eosinophils (%) (Auto) 3.6 H, Basophils (%) (Auto) 0.2, Neutrophils # (Auto) 5.9, Lymphocytes # (Auto) 1.7, Monocytes # (Auto) 0.7, Eosinophils # (Auto) 0.3, Basophils # (Auto) 0.0 05/20/19 06:26 Red Blood Count 3.01 L, Mean Corpuscular Volume 91.7, Mean Corpuscular Hemoglobin 30.6, Mean Corpuscular Hemoglobin Concent 33.3, Red Cell Distribution Width 12.0, Calcium Level 8.3 L 05/20/19 13:50 Calcium Level 8.2 L Vital Signs Date Time Temp Pulse Resp B/P (MAP) Pulse Ox O2 Delivery O2 Flow Rate FiO2 05/20/19 10:00 98.0 70 18 113/58 (76) 95 05/19/19 22:05 2 I&O- Last 24 Hours up to 6 AM 05/20/19 06:00 Intake Total 250 ml Output Total 485 ml Balance -235 ml CELIO VERDE DO May 20, 2019 15:36 CHELSY RAMIREZ MD May 22, 2019 10:43
[2019-05-20] MEDS: LR 1,000 ML IV SCH (15:39)
[2019-05-20 20:06] VITALS: BP 117/56
[2019-05-20] MEDS: LEVEMIR (INSULIN DETEMIR) 1 UNITS/0.01ML SC SCH (20:35)
[2019-05-21] MEDS: LR 1,000 ML IV SCH (01:37)
[2019-05-21 02:50] VITALS: BP 120/54
[2019-05-21 06:05] VITALS: BP 118/54
[2019-05-21] MEDS: LEVOTHYROXINE 100MCG TABLET (0.1MG) PO SCH (06:12)
[2019-05-21 07:41] LABS: HEMATOCRIT 25.2 % (36.0-47.0); HEMOGLOBIN 8.2 g/dl (12.0-15.5); MEAN CORPUSCULAR HEMOGLOBIN 30.6 pg (27.0-33.0); MEAN CORPUSCULAR HGB CONC 32.5 g/dl (32.0-36.5); PLATELET COUNT, AUTOMATED 191 10^3/uL (150-450); RED BLOOD COUNT 2.68 10^6/uL (4.00-5.40); WHITE BLOOD COUNT 8.1 10^3/uL (4.0-10.0)
[2019-05-21 08:39] LABS: CALCIUM LEVEL 8.1 MG/DL (8.8-10.2); CREATININE FOR GFR 2.36 MG/DL (0.55-1.30); GLOMERULAR FILTRATION RATE 20.7 (>32); POTASSIUM SERUM 4.9 MEQ/L (3.5-5.1)
[2019-05-21] MEDS ORDERED: FERROUS GLUCONATE 324 MG TAB PO SCH (09:00)
[2019-05-21] MEDS: HumaLOG INSULIN (NovoLOG) PER UNIT SC SCH ×2 (09:27→12:00)
[2019-05-21] MEDS: CYANOCOBALAMIN 500 MCG TAB PO SCH (09:27)
[2019-05-21] MEDS: MAGNESIUM OXIDE 400 MG TAB (MAG-OX) PO SCH (09:27)
[2019-05-21] MEDS: PRAVASTATIN 10 MG TAB PO SCH (09:28)
[2019-05-21 09:29] VITALS: BP 116/58
[2019-05-21] MEDS: METOPROLOL SUCC (TopROL XL) 50MG **XL** TAB PO SCH (09:29)
[2019-05-21] MEDS: **hydrALAZINE** 10 MG TAB PO SCH (09:29)
[2019-05-21 10:00] VITALS: BP 103/49
[2019-05-21] MEDS: IRON SUCROSE 200 MG in NS 100 ML IV SCH (10:54)
[2019-05-21] MEDS ORDERED: IRON SUCROSE 100MG 5ML VIAL (J1756 PER 1MG) IV ONE (11:30)
--- NOTE | 2019-05-21 11:37 | IPN ---
DATE: 05/21/2019 SUBJECTIVE: The patient was seen and examined at the bedside this morning. She is afebrile, hemodynamically stable. She stayed overnight because there was a slight bump in her creatinine despite left side ureteral stent placement. The patient denies any active complaints. There is no pain in the left side of the abdomen now. Creatinine has been staying stable at 2.3 now. OBJECTIVE: VITAL SIGNS: Temperature is 99.6 degrees Fahrenheit, blood pressure 118/54, pulse is 74, respiratory of 60, saturating 95% on room air. Intake and output: Urine output recorded is 1.4 liters yesterday 375 mL so far today since overnight. Weight in the bed scale is 67.3 kg. PHYSICAL EXAMINATION: GENERAL: The patient is awake, alert, oriented times three, laying in bed in no apparent distress. HEAD AND NECK EXAM: Extraocular muscles intact. Pupils equally round and reactive to light. Mucous membranes are moist. NECK: Neck is supple. There is no jugular venous distention (JVD). CARDIOVASCULAR: S1, S2 regular rate. No edema of the bilateral lower extremity. RESPIRATORY: Chest is clear to auscultation bilaterally. Bilateral equal air entry. No rales or rhonchi. ABDOMEN: Soft. Positive bowel sounds. Nontender. No organomegaly. MUSCULOSKELETAL: No clubbing or cyanosis. Pulses of 2+. CENTRAL NERVOUS SYSTEM (ARTIST WOODBLOCK): No focal deficit. Power is 5/5 in all extremities. LAB REVIEW: CBC showed WBC of 8.1, hemoglobin 8.2, platelets of 191. BMP showed sodium 140, potassium 4.9, chloride 110, bicarb 45, BUN 44, creatinine is 2.3, calcium is 8.1. CURRENT INPATIENT MEDICATIONS: The patient's medications were all reviewed by me. She was getting Ringer's lactate at 100 mL an hour which has been stopped now. She was started on IV Venofer yesterday. Lasix was stopped yesterday. No other change in the medications today as compared with yesterday. ASSESSMENT/PLAN: 1. Acute kidney injury superimposed on chronic kidney disease stage IV. The patient's creatinine has been fluctuating at around 2.3 at this time. It is not worsening. There is no further need of IV fluid hydration. Patient can be discharged and she can followup with nephrology as outpatient. 2. Acute left-sided hydronephrosis secondary to left ureteropelvic retention stones. The patient has a ureteral stent on the left side. She will need to followup with urology within 1 week after discharge from the hospital. 3. Hypertension, blood pressure is controlled. Continue metoprolol and hydralazine. Avoid use of angiotensin converting enzyme inhibitors (KENNEDY) inhibitors. 4. Diabetes mellitus type 2. Continue insulin. Avoid use of metformin. 5. Iron-deficiency anemia: The patient is getting IV Venofer she is also getting oral iron tablets. Continue the oral iron on discharge from the hospital. DISPOSITION: The patient is okay to be discharged from nephrology standpoint. She will followup with nephrology 2 weeks after discharge.
[2019-05-21] MEDS ORDERED: IRON SUCROSE 200 MG in NS 100 ML IV ONE (13:00)
[2019-05-21 14:00] VITALS: BP 123/55
[2019-05-21 16:00] LABS: HEPATITIS B SURFACE ANTIGEN NEGATIVE (NEGATIVE)
[2019-05-21 16:27] LABS: HEPATITIS B CORE ANTIBODY IGM NEGATIVE (NEGATIVE); HEPATITIS C VIRUS ABY INDEX 0.1 INDEX (<0.8)
[2019-05-21 16:30] LABS: HEPATITIS A ANTIBODY IGM NEGATIVE (NEGATIVE)
--- NOTE | 2019-05-21 17:28 | DS.PDOC ---
Discharge Summary General Date of Admission May 19, 2019 at 19:31 Date of Discharge 05/21/19 Primary Care Physician: Mabel Chiang MD Attending Physician: CHELSY RAMIREZ MD Specialist/Consultants Involve: JAMESON FELDMAN MD Specialist/Consultants Involve Gregory Holloway MD, urology Discharge Summary PROCEDURES PERFORMED DURING STAY: Left ureteral stent and cystoscopy performed by Dr. Holloway. ADMITTING/DISCHARGE DIAGNOSES: 1. Ureterolithiasis with hydronephrosis 2. Acute kidney injury on chronic kidney disease stage IV 3. Chronic normocytic normochromic anemia 4. Hypertension 5. Dyslipidemia 6. Diabetes 7. Hypothyroidism COMPLICATIONS/CHIEF COMPLAINT: Flank pain/abdominal pain HISTORY OF PRESENT ILLNESS/HOSPITAL COURSE: Patient is an 88-year-old female who was sent from the neurologist's office for left-sided 9/10 abdominal pain. In the emergency department a CT of the abdomen and pelvis showed 2 nephrolithiasis with moderate hydronephrosis. Urology was contacted and the patient underwent a cystoscopy with left ureteral stent placement. Patient was admitted to the medical surgical floor for further monitoring. On hospital course day 2, she was cleared by urology to be discharged and follow-up outpatient for laser lithotripsy. Patient received her diuretic therapy as well as fluids so her acute kidney injury did not improve as we had hoped so we decided to keep the patient on observation for a second night. Over that night she was given initially lactated Ringer's however, Dr. Feldman changed her to normal saline as we were worried about hyperkalemia and lactated ringer's has potassium in the fluid. On hospital course day 3 patient was feeling much better. Although, her creatinine did not improve I discussed the case with Dr. Feldman of nephrology who said the patient should be cleared for discharge as long she does not take any nephrotoxic agents such as her KENNEDY inhibitor and loop diuretic. He told the patient to follow-up with him at their regular scheduled appointment and if she feels short of breath or starts gaining weight or starts having leg swelling to call the office to restart her diuretic. Patient was deemed ready for discharge and was discharged home. DISCHARGE MEDICATIONS: Please see below. ALLERGIES: Please see below. PHYSICAL EXAMINATION ON DISCHARGE: Vitals: (see below) General: No acute distress, laying comfortably in bed. HEENT: Moist mucous membranes. Neck: No JVD or lymphadenopathy Cardiac: RRR, No murmurs Pulm: Clear to auscultation b/l. No wheezing, rhonchi Abd: NT/ND + BS Ext: No edema or cyanosis LABORATORY DATA: Please see below. IMAGING: A CT of the abdomen and pelvis with by mouth contrast only performed on 05/19/2018 shows a 6 mm in 2 mm diameter stones at the left ureteropelvic junction, resulting in moderate left hydronephrosis. Left renal cyst, chronic pancreatitis, cholelithiasis. A retrograde pyelogram performed on 05/19/2019 showed the left ureteral double pigtail stent in place. A renal ultrasound performed on 05/20/2019 showed findings consistent with chronic medical renal disease, right kidney without hydronephrosis, left kidney damage shows multiple cysts and hydronephrosis cannot definitely be excluded. PROGNOSIS: Fair ACTIVITY: As tolerated. DIET: Renal DISCHARGE PLAN/DISPOSITION: Discharge home DISCHARGE INSTRUCTIONS: 1. Follow-up with Dr. Sampson on 05/27/2019 at 1:20 PM 2. Stop your Lasix and lisinopril until further instructed by nephrology. 3. Follow-up with nephrology as discussed. 4. Follow-up with urology as scheduled. 5. Return to the emergency department if symptoms worsen. DISCHARGE CONDITION: Stable. I saw and evaluated the patient. I agree with the findings and plan of care as documented in the above note Vital Signs/I&Os Vital Signs Date Time Temp Pulse Resp B/P (MAP) Pulse Ox O2 Delivery O2 Flow Rate FiO2 05/21/19 14:00 99.7 71 20 123/55 (77) 93 05/19/19 22:05 2 I&O- Last 24 Hours up to 6 AM 05/21/19 06:00 Intake Total 4220 ml Output Total 1350 ml Balance 2870 ml Laboratory Data Labs 24H Laboratory Tests 2 05/20/19 20:09: Bedside Glucose (Misc Panel) 298H 05/21/19 06:02: Bedside Glucose (Misc Panel) 133H 05/21/19 07:19: Nucleated Red Blood Cells % (auto) 0.0, Anion Gap 5L, Glomerular Filtration Rate 20.7L, Blood Urea Nitrogen 44H, Creatinine 2.36H, Sodium Level 140, Potassium Level 4.9, Chloride Level 110H, Carbon Dioxide Level 25, Calcium Level 8.1L 05/21/19 11:56: Bedside Glucose (Misc Panel) 161H CBC/BMP Laboratory Tests 05/21/19 07:19 Red Blood Count 2.68 L, Mean Corpuscular Volume 94.0, Mean Corpuscular Hemoglobin 30.6, Mean Corpuscular Hemoglobin Concent 32.5, Red Cell Distribution Width 12.3, Calcium Level 8.1 L FSBS Laboratory Tests Test 05/20/19 20:09 05/21/19 06:02 05/21/19 11:56 Range/Units Bedside Glucose (Misc Panel) 298 133 161 83-110 MG/DL Discharge Medications Scheduled Ergocalciferol (Vitamin D2) (Vitamin D2) 50,000 Unit Capsule, 50,000 UNIT PO 1XWK, (Reported) TAKES ON FRIDAY Glipizide (Glipizide ER) 2.5 Mg Tab.er.24, 2.5 MG PO DAILY, (Reported) Hydralazine HCl (Hydralazine HCl) 10 Mg Tablet, 10 MG PO BID, (Reported) Insulin Glargine,Hum.rec.anlog (Lantus Solostar) 100 Unit/1 Ml Insuln.pen, 8 UNITS SC QPM, (Reported) TAKES AT NOON Levothyroxine Sodium (Synthroid) 100 Mcg Tablet, 100 MCG PO DAILY, (Reported) Magnesium Oxide (Magnesium Oxide) 400 Mg Tablet, 400 MG PO DAILY, (Reported) Metoprolol Succinate (Metoprolol Succinate) 50 Mg Tab.er.24h, 50 MG PO BID, (Reported) Pravastatin Sodium (Pravastatin Sodium) 10 Mg Tablet, 10 MG PO DAILY, (Reported) Scheduled PRN Clotrimazole (Clotrimazole) 1% 30GM Cream..g., 1 APLCT TOP TID PRN for RASH, (Re ported) APPLY TO AFFECTED AREA OF GENITAL REGION Allergies Coded Allergies: amlodipine (Verified Allergy, Severe, angioedema, 05/19/19) CELIO VERDE DO May 21, 2019 17:28 CHELSY RAMIREZ MD May 22, 2019 10:48
[2019-06-14] MEDS ORDERED: FERA1TAB PO (15:19)
[2019-06-14] MEDS ORDERED: BIOT10009 PO (15:23)
[2019-06-14] MEDS ORDERED: CARV6.25 PO (15:23)
[2019-06-14] MEDS ORDERED: VITAMIN B 12 PO (15:23)
[2019-06-14] MEDS ORDERED: FURO20TA2 PO (15:23)
[2019-06-14] MEDS ORDERED: ASPI81TA85 PO (15:23)
== END 2019-05-21 15:40 | disposition home or self-care (01) ==
LOC: EDBD 15:33 → M ED 15:33 → M SDC 19:30 → M ED INP 19:31 → M MS5PR 22:22
PROVIDERS: ADMIT Internal Medicine; ATTEND Internal Medicine
DX: N13.2 Hydronephrosis with renal and ureteral calculous obstruction (principal); N17.9 Acute kidney failure, unspecified; N18.4 Chronic kidney disease, stage 4 (severe); D50.9 Iron deficiency anemia, unspecified; I12.9 Hypertensive chronic kidney disease with stage 1 through stage 4 chronic kidney disease, or unspecified chronic kidney disease; E78.49 Other hyperlipidemia; E11.9 Type 2 diabetes mellitus without complications; E03.9 Hypothyroidism, unspecified; Z79.4 Long term (current) use of insulin; Z79.899 Other long term (current) drug therapy; Z88.8 Allergy status to other drugs, medicaments and biological substances
CPT/HCPCS: 36415; 52332; 74176; 74420; 76775; 80048; 80076; 82306; 82607; 82728; 82746; 83036; 83550; 83690; 83970; 84100; 84165; 85025; 85027; 85046; 86705; 86709; 86803; 87340; 93041; 96361; 96372; 96374; 96375; 99285; C1769; C2617; G0378; J0690; J1756; J2270; J2405; J3420; Q9961

== ENCOUNTER 2019-07-02 10:24 | Day surgery (SDC) | payer MEDICARE ==
[~2019-07-02] VITALS: Ht 154.9 cm; Wt 58.4 kg
[~2019-07-02 10:24] MED LIST: ASPI81TA85 PO; BIOT10009 PO; CARV6.25 PO; CLOT1CRE27 TOP; FERA1TAB PO; FURO20TA2 PO; GLIP2.5T6 PO; HYDR10TAB PO; LANTINJ4 SC; LIDOCAINE 1% MDV 20ML VIAL SQ PRN; LISI40TA PO; LR 1,000 ML IV ONE; MAGN400T2 PO; METO1TAB7 PO; PRAV10TA3 PO; SYNT100T PO; VITA50005 PO; VITAMIN B 12 PO; ceFAZolin SOD 2 GM in IV 1 EA IV ONE
[2019-07-02] MEDS ORDERED: fentaNYL 100 MCG/2 ML INJECTION (J3010) As Ordered ONE (11:13)
[2019-07-02] MEDS ORDERED: LIDOCAINE 2% INJ 100 MG/5 ML SDV (FOR ANES.) As Ordered ONE (11:13)
[2019-07-02] MEDS ORDERED: PROPOFOL 200 MG/20 ML VIAL As Ordered ONE (11:13)
[2019-07-02] MEDS ORDERED: ONDANSETRON 4MG/2ML VIAL (J2405) As Ordered ONE (11:13)
[2019-07-02] MEDS ORDERED: dexameTHASONE 4 MG/ML 1ML VIAL (J1100) As Ordered ONE (11:13)
[2019-07-02] MEDS ORDERED: D5W/0.45% SODIUM CHLORIDE 1,000 ML IV SCH (11:45)
[2019-07-02] MEDS ORDERED: CONRAY-60 60% 50ML VIAL (Q9961) As Ordered ONE (12:04)
[2019-07-02] MEDS ORDERED: ACETAMINOPHEN 1000MG 100ML IV BTL (OFIRMEV) (J0131 PER 10MG) As Ordered ONE (12:39)
[2019-07-02] MEDS ORDERED: PHENYLephrine HCL 500 MCG/5 ML (100MCG/ML) SYRINGE (J2370) As Ordered ONE (12:42)
[2019-07-02] MEDS ORDERED: HumaLOG INSULIN (NovoLOG) PER UNIT As Ordered ONE (13:26)
[2019-07-02] MEDS ORDERED: KEFL250C11 PO (13:27)
--- NOTE | 2019-07-02 13:32 | ROOPDOC ---
[facility] Report Of Operation Report of Operation DATE OF PROCEDURE: 07/02/19 PREPROCEDURE DIAGNOSES: Left renal calculi. POSTPROCEDURE DIAGNOSES: Same. PROCEDURE: Cystoscopy, left retrograde pyelogram, left ureteroscopy with laser lithotripsy, left double-J stent. SURGEON: Michael Sigala MD ANESTHESIA: Gen. LMA. ESTIMATED BLOOD LOSS: Approximately less than 20 mL. COMPLICATIONS: None. REMARKS: 6 Gambian double-J stent. PROCEDURE NOTE: Patient was brought to the operating room and following administration of general anesthesia was placed in the dorsal lithotomy position and prepped and draped in usual sterile fashion. A #22 Gambian cystoscope was inserted. A stent was seen from the left ureteral orifice. This was grasped with biopsy forceps and brought out through the meatus. An 038 guidewire was then placed through the stent and advanced to the renal pelvis. The cystoscope was removed. A 10 Gambian dual-lumen catheter was inserted over the wire to the renal pelvis. Retrograde pyelogram was performed revealing a normal left collecting system with no filling defects noted. A Glidewire was placed through the catheter to the renal pelvis and the catheter was removed. A ureteral access sheath was placed over the Glidewire and advanced to the ureteral pelvic junction. The Glidewire was removed. A flexible ureteroscope was inserted through the ureteral access sheath to the renal collecting system. All the calyces were visualized and 2 stones were found in the lower pole calyx. Utiliz ing laser lithotripsy the stones were fragmented to very small fragments. Laser lithotripsy was performed between 6 and 12 W for a total energy of 1597 J and a total time of 127 seconds. The ureteroscope was then removed under direct vision while the access sheath was removed. No stones were seen within the ureter. The cystoscope was reinserted over the remaining guidewire. Retrograde pyelogram was repeated and no filling defects were seen, no extravasation was noted. A 6 Gambian double-J stent was then inserted over the remaining wire under direct vision using fluoroscopy guidance. Once good position was confirmed by fluoroscopy the wires removed leaving the stent in place. Patient tolerated the procedure well returned to recovery room in satisfactory condition. Michael Sigala MD Jul 02, 2019 13:32
[2019-07-02] MEDS ORDERED: ONDANSETRON 4MG/2ML VIAL (J2405) IV PRN (13:45)
[2019-07-02] MEDS ORDERED: PERCOCET 5MG/325MG TAB PO PRN (13:45)
[2019-07-02] MEDS ORDERED: HYDROMORPHONE HCL 0.5 MG/ 0.5 ML SYRINGE (J1170 PER 1) IV PRN (13:45)
[2019-07-02] MEDS ORDERED: LR 1,000 ML IV SCH (13:45)
[2019-07-02] MEDS ORDERED: HumaLOG INSULIN (NovoLOG) PER UNIT SC ONE (13:45)
[2019-07-02] MEDS ORDERED: fentaNYL 100 MCG/2 ML INJECTION (J3010) IV PRN (13:45)
--- NOTE | 2019-07-02 14:33 | REP ---
RETROGRADE PYELOGRAM: Single view. HISTORY: Cystoscopy, left ureteroscopy with laser. 119 seconds of fluoroscopy time is reported. FINDINGS: A single last image hold fluoroscopically obtained spot radiograph of the abdomen documents left ureteral stent placement and some contrast injection in the upper tract collecting system. Electronically Signed by Sushil Kang MD 07/02/2019 07:41 P
[2019-07-02 14:50] VITALS: BP 169/68
[2019-07-02] MEDS ORDERED: CEPHALEXIN 250 MG CAP PO SCH (21:00)
== END 2019-07-02 15:04 | disposition home or self-care (01) ==
LOC: M SDC 10:24
PROVIDERS: ATTEND Urology
DX: N20.0 Calculus of kidney (principal); I25.10 Atherosclerotic heart disease of native coronary artery without angina pectoris; I12.9 Hypertensive chronic kidney disease with stage 1 through stage 4 chronic kidney disease, or unspecified chronic kidney disease; E11.9 Type 2 diabetes mellitus without complications; N18.4 Chronic kidney disease, stage 4 (severe); Z95.0 Presence of cardiac pacemaker; Z98.61 Coronary angioplasty status; Z88.8 Allergy status to other drugs, medicaments and biological substances; Z87.891 Personal history of nicotine dependence; E03.9 Hypothyroidism, unspecified; Z79.4 Long term (current) use of insulin; Z79.84 Long term (current) use of oral hypoglycemic drugs; Z79.899 Other long term (current) drug therapy
CPT/HCPCS: 52356; 74420; C1769; C1894; C2617; J0131; J0690; J1100; J2370; J2405; J3010; Q9961

== ENCOUNTER → 2019-07-13 | Outpatient (REF) | payer MEDICARE ==
[~2019-07-13] MED LIST changes: +KEFL250C11 PO; -LIDOCAINE 1% MDV 20ML VIAL SQ PRN; -LR 1,000 ML IV ONE; -ceFAZolin SOD 2 GM in IV 1 EA IV ONE
[2019-07-13 13:50] LABS: FERRITIN 150 NG/ML (8-252); IRON (FE) 86 UG/DL (50-170); PERCENT SATURATION 34.4 % (13.2-45.0); TOTAL IRON BINDING CAPACITY 250 UG/DL (250-450)
[2019-07-16 00:08] LABS: Methylmalonic Acid 333 nmol/L (0-378)
== END ==
LOC: M LAB REF 13:10
PROVIDERS: ATTEND Internal Medicine Nephrology
DX: D64.9 Anemia, unspecified (principal)